=== PATIENT | female | born 1975 | race Caucasian/White ===

== ENCOUNTER 2023-07-12 14:05 | Emergency (ER) | payer OTHER ==
[2023-07-12] MEDS ORDERED: Boostrix 0.5 ML (Tdap) VIAL (>/=7 yrs of age) ONE (14:27)
[2023-07-12] MEDS ORDERED: Cephalexin 250 MG CAP ONE (14:27)
== END 2023-07-12 14:41 | disposition home or self-care (01) ==
LOC: BURERS 14:05
DX: S90.412D Abrasion, left great toe, subsequent encounter (principal); Z23 Encounter for immunization; X58.XXXD Exposure to other specified factors, subsequent encounter
CPT/HCPCS: 90471; 90715